=== PATIENT | female | born 1990 ===

== ENCOUNTER 2017-12-02 00:20 | Emergency (ER) | payer MEDICAID ==
--- NOTE | 2017-12-02 04:25 | OBHP ---
Datetime: 12/02/2017 04:20 IP Adm Impression: Term, intrauterine IP Admit Plan: Discharge home Admit Comment, IP Provider: @ 38+ wks c/o ctx q 5 min since 9pm 07/05 dnie slof, vb, +FM pt does not desire pain mediatn. 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 PMH: Dneies PSH: Denies FH:X non contriboyr MEDS: PNV NKDA SHX: negaative etoh/tobacc/drugs A/P @ 38.4 wks GA non in labor -cont toco adn efm -dc home -labor precatuiongs Pelvic Type - PN: Adequate Extremities - PN: Normal Abdomen - PN: Normal Back - PN: Normal Breast - PN: Normal Lungs - PN: Normal Heart - PN: Normal Thyroid - PN: Normal Neurologic - PN: Normal HEENT - PN: Normal General - PN: Normal Presentation-Admit: Vertex FHR - Baseline A Provider: 125 Membranes, Provider: Intact Contraction Comments Provider: q 5 min Gestation - Est Wks by US: 38.4 EGA AdmitDate IP: 38.4 Vital Signs Provider: Reviewed; Within Normal Limits IP Chief Complaint: Uterine contractions NICHD Variability Prov Fetus A: Moderate 6-25bpm FHR Category Provider Fetus A: Category I Dilatation, Provider: 2 Effacement, Provider: 50 Station, Provider: -3 Genitourinary Exam: Normal DTRs - PN: Normal
[2017-12-02 06:02] VITALS: BP 125/83; PULSE 86; RESP 18; TEMP 98.4
== END 2017-12-02 01:40 | disposition home or self-care (01) ==
LOC: C.EROB 00:20
DX: O47.1 False labor at or after 37 completed weeks of gestation (principal); Z3A.38 38 weeks gestation of pregnancy

== ENCOUNTER 2017-12-11 10:30 | Inpatient (IN) | payer MEDICAID ==
[2017-12-11 11:21] VITALS: BMI 23.7
[2017-12-11] MEDS ORDERED: Oxytocin 30 UNIT 30 UNITS/500 ML BAG IV ONE ×2 (12:19→13:09)
[2017-12-11] MEDS ORDERED: Lactated Ringer's 1,000 ML IV ONE (12:19)
[2017-12-11] MEDS ORDERED: Lactated Ringer's 1,000 ML IV SCH (12:30)
[2017-12-11 12:57] LABS: BASO # 0.1 K/uL (0.0-0.2); BASO % 1.1 % (0.0-2.0); EOS % 0.4 % (0.0-4.0); LYMPH # 2.5 K/uL (1.0-4.3); LYMPH % 26.7 % (20.0-40.0); MEAN CELL VOLUME 89.3 fL (81.0-99.0); MEAN CORPUSCULAR HEMOGLOBIN 29.5 pg (27.0-31.0); MEAN CORPUSCULAR HGB CONC 33.1 g/dL (33.0-37.0); MEAN PLATELET VOLUME 10.6 fL (7.2-11.7); MONO # 0.6 K/uL (0.0-0.8); MONO % 6.5 % (0.0-10.0); NEUT # 6.2 K/uL (1.8-7.0); NEUT % 65.3 % (50.0-75.0); NRBC % 0.1 % (0.0-2.0); RBC 4.75 Mil/uL (3.80-5.20); RED CELL DISTRIBUTION WIDTH 14.7 % (11.5-14.5); WHITE BLOOD COUNT 9.5 K/uL (4.8-10.8)
--- NOTE | 2017-12-11 12:59 | OBHP ---
Datetime: 12/11/2017 12:17 IP Adm Impression: Term, intrauterine ; Active labor; Intact Membranes IP Admit Plan: Admit to unit; Initiate labor protocol Admit Comment, IP Provider: Patient is a 26 year old female at 38.3 weeks by first trimester ultrasound performed on 05/31/17 at 10 weeks 5 days who presents with complaint of vaginal spotting s anthony 9AM this morning 12/11/17. She reports contractions started yesterday morning at 2AM but became stronger since arriving to L_D unit and rates pain as 10/05. Patient denies complications with this , only reports UTI that was treated. With regards to vaginal spotting, she reports at first this morning it was blood tinged fluid but then became thicker and darker with some clots. She stat es the blood is minimal and has not had to change pad. She denies rupture of membranes. She reports movement. Past OBGYN history: First with spontaneous at 12 weeks gestation 09/23/15. Denies surgical procedure / D_C after miscarriage. Hospital visit 12/02/17 for complaint of contractions, 2cm dilated at that time, discharged home wi th clinic follow up LMP questionable due to history of Depo Provera shots. She reports last Depo shot 10/2016 and [place] od 11/22/16. She reports one day vaginal bleeding 03/07/17. She reports monthly periods prior to star ting Depo. Menstrual bleeding last 5-7 days. Menarche age 14 Denies STDs Denies abnormal pap history, denies cervical or uterine abnormalities including polyps,cysts and f ibroids Allergies: denies Medications: vitamins Past Medical Hx:denies Past Surgical Hx: denies Family Hx: Mother alive age 44 with rheumatoid arthritis, anemia, HTN; Father alive age 45 with HT N. No family history of cancer Social Hx: negative x 3 for tobacco, alcohol, drugs; lives with - two years, [facility] for 6 years. Currently umnemployed ROS: denies chest pain, dyspnea, nausea or vomiting, dizziness, headache. Admits to vaginal spott ing, contractions Labs reviewed: Type O positive Rubella immune 04/2017 Varicella immune 04/2017 RPR non reactive 11/12/17 HIV 4th gen negative 11/12/17 G/C negative 11/26/17 GBS negative 11/26/17 1h 122, GST normal Assessment: 26 year old female who presents to the [facility] at 38.3 weeks gestation by US with complaint of vaginal spotting and contractions Plan: Admit to L_D EFM NPO start IV fluids, pitocin check CBC, CMP, UA, RPR anticipate vaginal delivery Josué Rodriguez, PGY-3 Attending Note: I was present during the interview and performed the speculum and vaginal/cervical examinations. I agree with the above as documented. Additional comment on assessment: Category 1 tra cing. D/W patient: augmentation with pitocin, pain relief options. Patient exressed an understanding and agrees with the plan. No questions were offered. Patient is clinically stable. Plan: 1) as above. Pelvic Type - PN: Adequate Extremities - PN: Normal Abdomen - PN: Normal Back - PN: Normal Breast - PN: Not Done Lungs - PN: Normal Heart - PN: Normal Thyroid - PN: Not Done Neurologic - PN: Normal HEENT - PN: Normal General - PN: Normal Weight - Estimated: 3,175 Presentation-Admit: Vertex FHR - Baseline A Provider: 145 Membranes, Provider: Intact Contraction Comments Provider: irregular Comments, ACOG Physical Exam: Speculum exam with muocid sanguinous discharge consistent with mucous plug fundal height 38.5cm Gestation - Est Wks by US: 38.3 IP Hx Assessment: The History has been Reviewed and is Current EGA AdmitDate IP: 38.3 Vital Signs Provider: Reviewed; Within Normal Limits IP Indication for Induction: Not Applicable IP Chief Complaint: Uterine contractions; Vaginal bleeding NICHD Variability Prov Fetus A: Moderate 6-25bpm NICHD Accel Fetus A IP Provider: 15X15 FHR Category Provider Fetus A: Category I NICHD Decel Fetus A IP Provider: None Dilatation, Provider: 5 Effacement, Provider: 80 Station, Provider: -3 Genitourinary Exam: Normal DTRs - PN: Not Done
[2017-12-11 13:02] LABS: ALB/GLOB RATIO 1.1 (1.0-2.1); ALBUMIN 3.9 g/dL (3.5-5.0); ALT/SGPT 34 U/L (9-52); AST/SGOT 43 U/L (14-36); BLOOD UREA NITROGEN 5 mg/dL (7-17); GFR NON-AFRICAN AMERICAN > 60; SQUAMOUS EPITHIAL < 1 /hpf (0-5); URINE BACTERIA RARE (<OCC); URINE BILIRUBIN NEGATIVE (NEGATIVE); URINE BLOOD 3+ (NEGATIVE); URINE CLARITY Clear (Clear); URINE COLOR Yellow (YELLOW); URINE GLUCOSE (UA) NORMAL (Normal); URINE LEUKOCYTE ESTERASE NEG Leu/uL (Negative); URINE PROTEIN NEGATIVE (NEGATIVE); URINE UROBILINOGEN NORMAL mg/dL (0.2-1.0)
[2017-12-11] MEDS ORDERED: Bupivacaine HCl/FentaNYL Cit 100 ML EPI ONE ×2 (13:27→20:19)
[2017-12-11] MEDS ORDERED: Lidocaine 2% MPF (5 ml) Inj ONE (14:13)
--- NOTE | 2017-12-11 18:11 | OBPN ---
Datetime: 12/11/2017 18:04 IP Progress Impression Other: protracted active phase of labor IP Procedures: Artificial ROM IP Progress Plan: Continue present management; Augmentation Membranes, Provider: Ruptured Amniotic Fluid Color, Provider: Meconium, Light Contraction Comments Provider: 2-3 FHR - Baseline A Provider: 145 Gestation - Est Wks by US: 38w 3d Presentation-Admit: Vertex IP Progress Note Comment: Received in LDR#1 - FOB and her mother present. Comfortable after epidural (+) AFM Cervical exam as above. AROM performed - moderate amount of lightly stained meconium liquor. Pitoc in at 8 mUnits Assessment: 26 y.ol P0010, 38w 3d, protracted active phase of labor on pitocin. AROM performed - f indings as above Category 1 tracing. Clinically stable. Plan: 1) Continue present management 2) Anticipate vaginal delivery Vital Signs Provider: Reviewed NICHD Accel Fetus A IP Provider: 15X15 FHR Category Provider Fetus A: Category I NICHD Variability Prov Fetus A: Moderate 6-25bpm Dilatation, Provider: 7 Effacement, Provider: 90 Station, Provider: 0 NICHD Decel Fetus A IP Provider: None Datetime: 12/11/2017 12:17 Weight - Estimated: 3,175
[2017-12-11] MEDS ORDERED: Benzocaine/Menthol 20%-0.5% Topical Spray (60 ml) TOP PRN (22:28)
[2017-12-11] MEDS ORDERED: Oxycodone/Acetaminophen 5/325 mg Tab PO PRN (22:28)
--- NOTE | 2017-12-11 23:02 | OBDS ---
DELIVERY PERSONNEL Delivery Doctor: Birdie Durbin MD Youth Teacher: Jessica Alcantar RN Anesthesiologist: ELOISA MATERNAL INFORMATION Delivery Anesthesia: Epidural Estimated Blood Loss (ml): 500 Placenta Cultured: No Maternal Complications: None Provider Comments: , live female , EMELY position. Mouth and nares bulb-suctioned on perineum . Umbilical cord doubly clamped and cut; placed in warmer. Spontaneous delivery of placenta - grossly intact; 3 vessel cord Uterine exploration performed; uterus contracted and firm Examination of cervix, vagina, perineum performed - laceration noted as above - repaired as above. Hemostasis assured. Infant and mother bonidng - skin-to -skin. initiated. EBL 500 mL Weight 7lb 15oz 's 9/10 LABOR SUMMARY EDC: 12/22/2017 00:00 No. Babies in Womb: 1 Attempted: No Labor Anesthesia: Epidural LABOR INFORMATION Reason for Induction: Not Applicable Onset of Labor: 12/11/2017 09:00 Complete Dilatation: 12/11/2017 20:30 Oxytocin: Augmentation Group B Beta Strep: Negative Steroids Given: None Reason Steroids Not Administered: Not Applicable MEMBRANES Membranes Rupture Method: Artificial Rupture of Membranes: 12/11/2017 18:00 Length of Rupture (hrs): 3.42 Amniotic Fluid Color: Light Meconium Amniotic Fluid Amount: Moderate Amniotic Fluid Odor: Normal STAGES OF LABOR Stage 1 hrs: 11 Stage 1 min: 30 Stage 2 hrs: 0 Stage 2 min: 55 Stage 3 hrs: 0 Stage 3 min: 3 Total Time in Labor hrs: 12 Total Time in Labor min: 28 VAGINAL DELIVERY Episiotomy: None Laceration Extension: Second Degree Laceration Type: Perineal Laceration Repair: Yes Laceration Repair Note: 2-0 chromic in routine fashion Hemostasis assured. Patietn tolerated procedure well; in stable condition Initial Vag Sponge Count: 10 Final Vag Sponge Count: 20 Final Vag Sharps Count: 2 Sponge Count Correct: Yes Sharps Count Correct: Yes Count Comment: Correct BABY A INFORMATION Infant Delivery Date/Time: 12/11/2017 21:25 Method of Delivery: Vaginal Born in Route : No : N/A Forceps: N/A Vacuum Extraction: N/A Shoulder Dystocia : No SHOULDER DYSTOCIA BABY A Delivery Date/Time: 12/11/2017 21:25 PRESENTATION/POSITION BABY A Presentation: Cephalic Cephalic Presentation: Vertex Vertex Position: Left Occipital Anterior Breech Presentation: N/A PLACENTA INFORMATION BABY A Placenta Delivery Time : 12/11/2017 21:28 Placenta Method of Delivery: Spontaneous Placenta Status: Delivered SCORES BABY A Heart Rate 1 min: >100 bpm Resp Effort 1 min: Good Cry Reflex Irritability 1 min: Cough or Sneeze or Pulls Away Muscle Tone 1 min: Active Motion Color 1 min: Body [place], Extremities Blue Resuscitation Effort 1 min: Tactile Stimulation SCORE 1 MIN: 9 Heart Rate 5 min: >100 bpm Resp Effort 5 min: Good Cry Reflex Irritability 5 min: Cough or Sneeze or Pulls Away Muscle Tone 5 min: Active Motion Color 5 min: Completely [place] SCORE 5 MIN: 10 INFANT INFORMATION BABY A Gestational Age at Delivery: 38.3 Gestational Status: Term Outcome : Liveborn Infant Condition : Stable Infant Sex: Female IDENTIFICATION/MEDS BABY A ID Band Number: [id number] ID Band Location: Left Leg; Left Arm Sensor Applied: Yes Sensor Number: [id number] Sensor Location : Cord Clamp WEIGHT/LENGTH BABY A Birthweight (gms): 3600 Weight (lb): 7 Infant Weight (oz): 15 Infant Length Inches: 20.00 Infant Length cms: 50.8 CORD INFORMATION BABY A No. Cord Vessels: 3 Nuchal Cord : N/A Cord Blood Taken: Yes Suction: None
[2017-12-12 08:10] LABS: MEAN CELL VOLUME 88.5 fL (81.0-99.0); MEAN CORPUSCULAR HGB CONC 32.7 g/dL (33.0-37.0); MONO # 0.9 K/uL (0.0-0.8); WHITE BLOOD COUNT 12.7 K/uL (4.8-10.8)
[2017-12-12 08:21] LABS: BASO % 0.3 % (0.0-2.0); EOS % 0.2 % (0.0-4.0); LYMPH # 2.6 K/uL (1.0-4.3); LYMPH % 20.5 % (20.0-40.0); MEAN CORPUSCULAR HEMOGLOBIN 28.9 pg (27.0-31.0); MEAN PLATELET VOLUME 10.6 fL (7.2-11.7); NEUT # 9.2 K/uL (1.8-7.0); NRBC % 0.1 % (0.0-2.0); RED CELL DISTRIBUTION WIDTH 14.4 % (11.5-14.5)
[2017-12-12 08:28] LABS: HEMOGLOBIN 11.6 g/dL (11.0-16.0)
[2017-12-12] MEDS: Multiple Vitamins Tab PO SCH (09:41)
--- NOTE | 2017-12-12 13:00 | OBPPN ---
Datetime: 12/12/2017 10:17 PP Pain Prov: Within normal limits PP Nausea Prov: Denies PP Heart Prov: Normal PP Lungs Prov: Normal PP Abdomen/Uterus Prov: Normal PP Lochia Prov: Normal PP CVA Tenderness Prov: Normal PP Extremities Prov: Normal PP C/S Incision Prov: Not Applicable PP Progress Prov: Normal PP Comments Phys Exam Prov: fundal height at level of umbilicus, minimal tenderness on palpation of fundus but firm PP Impression Prov: Normal progression; difficulties PP Plan Prov: Continue present management; consult PP Progress Note Prov: Patient is a 26 year old female, post day 1, s/p at 21:25 pm 12/11/17 of [id number] baby girl. Patient seen and examined this morning at bedside. Patient states she feels well and pain is well controlled. Patient is tolerating diet well. She reports minimal v aginal bleeding with small clots. She is trying to breast feed but is supplementing with bottle. Assessment: 26 year old female, post day 1 s/p VSS PP H_H 11.6/35.4 Stable and Satisfactory condition and recovery Plan: Advance care encourage ambulation, encourage PO fluid intake pain management consult Anticipate discharge home in AM Nahed PGY3 Vital Signs Provider PP: Reviewed; Within Normal Limits
[2017-12-13 08:26] VITALS: BP 114/78; PULSE 90; RESP 18; TEMP 97.7; O2SAT 98
[2017-12-13] MEDS: Multiple Vitamins Tab PO SCH (09:58)
[2017-12-13] MEDS ORDERED: Influenza Vaccine 60 MCG/0.5 ML SYR (3 yr & up) IM ONE (10:00)
--- NOTE | 2017-12-13 22:17 | OBPPN ---
Datetime: 12/13/2017 22:09 PP Pain Prov: Within normal limits PP Nausea Prov: Denies PP Flatus Prov: Yes PP BM Prov: Yes PP Breasts Prov: Normal PP Heart Prov: Normal PP Lungs Prov: Normal PP Abdomen/Uterus Prov: Normal PP Lochia Prov: Normal PP Vulva/Perineum Prov: Normal PP CVA Tenderness Prov: Normal PP Extremities Prov: Normal PP C/S Incision Prov: Not Applicable PP Progress Prov: Normal PP Comments Phys Exam Prov: Breasts: no cracked nipples Abdomen: (+) BS. Soft. nondistended. Fundus firm, mobile, non tender, at umbilicus. Mild lochia ru bra Extremities: no calf tenderness All other systems reviewed and are negative PP Impression Prov: Normal progression PP Plan Prov: Discharge PP Progress Note Prov: Patient seen and evaluated at approximately 0920 hours: received in bed in ro 453. Breast- and bottlefeeding. Denies headaches, chest pain, shortness of breath, lightheadedness or dizziness. Ambulaitng and voiding without difficulty. P.E.: as above. WD in NAD. Awake, alert, oriented to time, person and place. Pleasant and cooperat crow - PPD#1 H/H 11.6/35.4. Rh(+) Assessment: PPD#2, 27 y.o. P1011, SP . Afebrile, vital signs stable. Undecided re: contraceptio n. Clinically stablbe. Plan: 1) Discharge home 2) See full discharge instructions Vital Signs Provider PP: Reviewed; Within Normal Limits
--- NOTE | 2017-12-13 22:19 | OBDCSUM ---
Datetime: 12/13/2017 09:27 Disch Activity Restrictions: No exercising; No lifting; Minimize walking; Minimize stair-climbing; N o sexual activity; Nothing in vagina - [place], tampons, douche Discharge Comment, Provider: 26 y/o F s/p PPD #2 is seen and examined this morning. No events overnight. Improvement of lochia with ligther bleeding. Improvement of suprapubic pain. +a mbulating/+flatulence/-bowel movement. Breast and botte feeding. A_P: Patient stable for discharge home. 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 Patient given script for Motrin 600 mg po q6 prn for pain. Alli Garcia DO, PGY-1 Attending NOte: patietn seen and evaluated by me with the resident . I agree with the above as doc umented. Discharge Diagnosis Prov Other: Contraception counseling
== END 2017-12-13 13:00 | disposition home or self-care (01) | DRG 373 ==
LOC: C.EROB 10:30 → C.4D 12:20 → C.4M 23:45
PROVIDERS: ADMIT Obstetrics & Gynecology; ATTEND Obstetrics & Gynecology
PROC: 10E0XZZ Delivery of Products of Conception, External Approach (ICD-10-PCS; principal; 2017-12-11)
PROC: 10907ZC Drainage of Amniotic Fluid, Therapeutic from Products of Conception, Via Natural or Artificial Opening (ICD-10-PCS; 2017-12-11)
PROC: 0KQM0ZZ Repair Perineum Muscle, Open Approach (ICD-10-PCS; 2017-12-11)
DX: O77.0 Labor and delivery complicated by meconium in amniotic fluid (principal); O62.2 Other uterine inertia; O70.1 Second degree perineal laceration during delivery; Z3A.38 38 weeks gestation of pregnancy; Z37.0 Single live birth